=== PATIENT | male | born 1995 | race Caucasian/White ===

== ENCOUNTER 2017-07-28 10:56 | Emergency (ER) | payer OTHER, BC ==
[2017-07-28 11:05] VITALS: BP 151/70; PULSE 66; RESP 18; TEMP 99.3; O2SAT 97
[2017-07-28] MEDS ORDERED: TDAP ADULT 0.5 ML INJ (BOOSTRIX) IM ONE (13:23)
--- NOTE | 2017-07-28 13:57 | EDPHY ---
General Narrative: CHIEF COMPLAINT: Crush injury to finger, laceration HISTORY OF PRESENT ILLNESS: Patient complains of laceration to the right middle finger after crush injury. He was closing a dumpster lid when it swung back and smashed his right middle finger. This happened just prior to arrival. This was at work. Sudden onset of pain with this. Laceration. Stopped bleeding with simple pressure. No numbness or tingling. No difficulty moving the finger but hurts to do so. No pain in the ipsilateral hand, wrist or forearm. No other associated complaints or modifying factors. TIME OF INJURY: Less than 2 hours prior to arrival TETANUS STATUS: Uncertain MEDICAL/SURGICAL/SOCIAL HISTORY: None REVIEW OF SYSTEMS: Ten systems reviewed and are negative unless otherwise noted in the HPI EXAMINATION General Appearance: Alert, no distress Head: normocephalic, atraumatic Cardiovascular: Pulses normal throughout. Symmetric radial pulses 2+. Brisk cap refill Neurological: A&O, sensory symmetric, strength symmetric. Good strength of the interossei. Light sensation in touch Skin: Warm and dry, no rash. 2 cm laceration on the posterior aspect of the right middle finger proximal phalanx. No pulsatile bleeding. No injury to the extensor tendon. Extremities: Tenderness over the area of laceration of the right middle finger. Range of motion is fully intact with flexion extension of the affected finger. Neurovascular intact distally DIFFERENTIAL DIAGNOSES: Including but not limited to laceration, fracture, open fracture, laceration with tendon injury, laceration foreign body MDM: 1:25 p.m. Posterior Laceration and crush injury to the right middle finger, proximal phalanx. Neurovascular intact. X-ray has been ordered to rule out fracture. I have administered a digital block. Proceed with irrigation closure of the wound. 1:50 p.m. X-ray as read by me reveals no fracture or dislocation. Proceed with irrigation and closure. 2:13 p.m. Finger laceration without any evidence of injury to the extensor tendon. No foreign body. No fracture on x-ray. I have repaired the wound without complication. Tolerated well. We discussed wound care. We discussed follow- up here in 7-10 days for suture removal. We discussed ED precautions for worsening pain, redness, warmth, signs of infection. This is a work related injury and he has started his worker's compensation follow-up. Discharged in stable condition, neurovascular intact. PROCEDURE: Digital Block Indication: Finger laceration Consent: Verbal Location: Right finger Anesthesia: Lidocaine 1% plain, 0.25% Marcaine plain, 5mL Description: Base of the finger was prepped. The above was infused without difficulty. Tolerated well. Good anesthesia. Complications: None PROCEDURE: Laceration repair Consent: Verbal Location: Right middle finger, posterior, proximal phalanx Length of repair: 2 cm Complexity: Simple Layer involvement: Single Anesthesia: Digital block Irrigation: Extensive Debridement: None Procedure description: Following good anesthesia, the wound was copiously irrigated. Wound bed was explored and there is no foreign body noted. No exposure of the extensor tendon. Wound borders were approximated well with good hemostasis. Tolerated well without complication. Suture/Staple material: 5-0 Prolene, Wound care: Routine as discussed Suture/Staple removal: 7-10 Days ED Precautions: Worsening pain. Erythema, edema, cyanosis, pallor, paresthesia or anesthesia. - Diagnostics Imaging Results: Imaging Impressions Finger X-Ray 07/28/17 13:26 Impression: Negative. No acute fracture. - History Smoking Status: Never smoked - Objective Vital Signs: Initial Vital Signs Temperature (C) 99.3 F 07/28/17 11:03 Heart Rate 66 07/28/17 11:03 Respiratory Rate 18 07/28/17 11:03 Blood Pressure 151/70 H 07/28/17 11:03 O2 Sat (%) 97 07/28/17 11:03 O2 Delivery Mode Room Air Allergies/Adverse Reactions: No Known Allergies Allergy (Unverified 09/08/16 06:59) Home Medications: Medication Instructions Recorded Cephalexin [Keflex (*)] 500 mg PO TID #30 cap 07/28/17 Medications Given: Discontinued Medications Diphtheria/Tetanus/Acell Pertussis (Boostrix) 0.5 ml IM .ONCE ONE Stop: 07/28/17 13:24 Last Admin: 07/28/17 14:02 Dose: 0.5 ml Departure - Departure Disposition: Home, Routine, Self-Care Clinical Impression: Crushing injury of finger of right hand Laceration of middle finger of right hand without complication Qualifiers: Encounter type: initial encounter Qualified Code(s): S61.212A - Laceration without foreign body of right middle finger without damage to nail, initial encounter Condition: Good Instructions: Care For Your Stitches (ED), Laceration (ED), Crush Injury (ED) Additional Instructions: 1. Daily wound care as discussed 2. keep the wound covered completely while showering for the 1st 2-3 days 3. Finger splint in place if movement is painful in the finger 4. Medication as prescribed to completion 5. Follow up here in 7-10 days for suture removal 6. Worker's compensation follow-up Referrals: NONE *PRIMARY CARE P,. [Primary Care Provider] - As per Instructions Alvarez De Santiaog MD [Medical Doctor] - As per Instructions Physician,Emergency DeptMD [Medical Doctor] - As per Instructions Stand Alone Forms: Work Comp Follow Up Prescriptions: Cephalexin [Keflex (*)] 500 mg PO TID #30 cap
== END 2017-07-28 14:47 | disposition home or self-care (01) ==
PROC: 0HQFXZZ Repair Right Hand Skin, External Approach (ICD-10-PCS; principal; 2017-07-28)
DX: S67.192A Crushing injury of right middle finger, initial encounter (principal); S61.212A Laceration without foreign body of right middle finger without damage to nail, initial encounter; Z23 Encounter for immunization; W23.1XXA Caught, crushed, jammed, or pinched between stationary objects, initial encounter; Y99.8 Other external cause status